=== PATIENT | male | born 1975 | race Caucasian/White ===

== ENCOUNTER 2020-12-10 21:36 | Emergency (ER) | payer OTHER ==
[~2020-12-10] VITALS: Ht 180 cm; Wt 141.0 kg
[2020-12-11] MEDS ORDERED: fentaNYL INJ 100 MCG/2 ML AMP IVP ONE (01:15)
[2020-12-11 01:33] LABS: BASOPHILS % (AUTO) 0 % (0-10); EOSINOPHILS # (AUTO) 0.1 10^3/uL (0.0-0.3); EOSINOPHILS % (AUTO) 1 % (0-10); HEMATOCRIT 44 % (40-54); HEMOGLOBIN 14.1 g/dL (13.3-17.7); LYMPHOCYTES # (AUTO) 1.7 10^3/uL (1.0-4.0); LYMPHOCYTES % (AUTO) 15 % (12-44); MEAN CORPUSCULAR HEMOGLOBIN 28 pg (25-34); MEAN CORPUSCULAR HGB CONC 32 g/dL (32-36); MEAN CORPUSCULAR VOLUME 85 fL (80-99); MEAN PLATELET VOLUME 10.4 fL (9.0-12.2); MONOCYTES # (AUTO) 0.7 10^3/uL (0.0-1.0); MONOCYTES % (AUTO) 7 % (0-12); NEUTROPHILS # (AUTO) 8.7 10^3/uL (1.8-7.8); NEUTROPHILS % (AUTO) 78 % (42-75); PLATELET COUNT 235 10^3/uL (130-400); WHITE BLOOD COUNT 11.2 10^3/uL (4.3-11.0)
[2020-12-11 01:48] LABS: ALBUMIN 4.3 GM/DL (3.2-4.5); POTASSIUM 3.8 MMOL/L (3.6-5.0)
[2020-12-11 01:49] LABS: CALCIUM 9.3 MG/DL (8.5-10.1)
[2020-12-11 01:51] LABS: TOTAL PROTEIN 7.7 GM/DL (6.4-8.2)
[2020-12-11 01:52] LABS: BILIRUBIN,TOTAL 0.5 MG/DL (0.1-1.0)
[2020-12-11 01:54] LABS: CREATININE SERUM 0.95 MG/DL (0.60-1.30)
[2020-12-11 01:57] LABS: MAGNESIUM 2.2 MG/DL (1.6-2.4)
[2020-12-11] MEDS ORDERED: oxyCODONE/APAP 5/325MG (PERCOCET 5) TABLET PO ONE (02:30)
[2020-12-11] MEDS ORDERED: ONDANSETRON 4 MG/2 ML (SDV) Z0FRAN ONE (02:36)
[2020-12-11] MEDS ORDERED: LACTATED RINGERS 1,000 ML IV ONE (02:45)
[2020-12-11] MEDS ORDERED: ONDANSETRON 4 MG/2 ML (SDV) Z0FRAN IVP ONE (02:45)
[2020-12-11] MEDS ORDERED: OXYC1TAB87 PO (03:17)
--- NOTE | 2020-12-11 03:18 | ED General ---
General Chief Complaint: General Problems/Pain Stated Complaint: LOW OX LVLS 74,LOW HR WHEN SLEEP,HEADACHE Nursing Triage Note: Pt here with MONTERO and concerns because he noted his sp02 drops while sleeping. He had a monitor because he had covid in October. He is trying to get a sleep study scheduled. He is not currently sob. Source of Information: Patient, Family History of Present Illness Date Seen by Provider: Dec 10, 2020 Time Seen by Provider: 21:57 Initial Comments This 45-year-old gentleman presents to the emergency room with complaints of right-sided headache, elevated blood pressure, chest tightness, dyspnea, nausea, and an episode of decreased oxygen saturation last night while he was dozing off in a recliner. He notes HR of 49 and O2 sat of 74% with a finger pulse-ox. He had COVID-November 05 with some lingering symptoms since then. He was vaccinated but had a breakthrough infection. His symptoms were not severe during the illness. He has no history of cardiopulmonary problems. He also has shingles primarily on the right upper extremity and torso. He has been seen by Dr. Thompson in the clinic and at the [facility] walk-in clinic. He was prescribed acyclovir for the shingles, antibiotics for sinus infection, and Zofran for the nausea. Allergies and Home Medications Allergies Coded Allergies: No Known Drug Allergies (Unverified , 10/30/12) Home Medications Oxycodone HCl/Acetaminophen 1 Each Tablet, 1 TAB PO Q4H PRN for PAIN- BREAKTHROUGH Prescribed by: BENJI BARAJAS on 12/11/20 0318 Patient Home Medication List Home Medication List Reviewed: Yes Review of Systems Review of Systems Constitutional: see HPI, other (Fatigue) EENTM: see HPI Respiratory: see HPI Cardiovascular: see HPI Gastrointestinal: no symptoms reported Genitourinary: no symptoms reported Musculoskeletal: see HPI Skin: see HPI Psychiatric/Neurological: See HPI Hematologic/Lymphatic: No Symptoms Reported Immunological/Allergic: no symptoms reported Past Umohxsi-Ccmokp-Tcrmkc Hx Patient Social History Tobacco Use?: No Smoking Status: Never a Smoker Smokeless Tobacco Frequency: Never a User Use of E-Cig and/or Vaping dev: No Substance use?: No Alcohol Use?: Yes Alcohol Frequency: Rarely Pt feels they are or have been: No Seasonal Allergies Seasonal Allergies: Yes Past Medical History Surgeries: No Respiratory: Yes (COVID October 2020) Cardiac: No Neurological: No Reproductive Disorders: No Sexually Transmitted Disease: No HIV/AIDS: No Gastrointestinal: No Musculoskeletal: No Endocrine: No HEENT: No Cancer: No Psychosocial: No Integumentary: No Adverse Reaction/Blood Tranf: No Physical Exam Vital Signs Vital Signs - First Documented 12/10/20 21:58 Temp 37.2 Pulse 72 Resp 18 B/P (MAP) 170/96 (120) Pulse Ox 95 O2 Delivery Room Air Capillary Refill : Less Than 3 Seconds Height, Weight, BMI Height: 5'11.00" Weight: 275lbs. oz. 124.035571sw; 43.00 BMI Method: General Appearance: WD/WN, Obese, Other (Appears midly uncomfortable) HEENT: PERRL/EOMI, Normal ENT Inspection Neck: Normal Inspection Respiratory: Lungs Clear, Normal Breath Sounds, No Accessory Muscle Use Cardiovascular: Regular Rate, Rhythm, No Edema, No Murmur Gastrointestinal: Normal Bowel Sounds, Non Tender, Soft Extremity: Normal Inspection, Non Tender, No Calf Tenderness, No Pedal Edema Neurologic/Psychiatric: Alert, Oriented x3, No Motor/Sensory Deficits, Normal Mood/Affect, rental agent II-XII Norm as Tested Skin: Normal Color, Warm/Dry, Rash (Patches of shingles on the RUE and torso) Progress/Results/Core Measures Suspected Sepsis SIRS Temperature: Pulse: 72 Respiratory Rate: 18 Laboratory Tests 12/11/20 01:20: White Blood Count 11.2H Blood Pressure 170 /96 Mean: 98 Laboratory Tests 12/11/20 01:20: Creatinine 0.95, Platelet Count 235, Total Bilirubin 0.5 Results/Orders Lab Results Laboratory Tests Test 12/10/20 23:21 12/11/20 01:20 Range/Units Influenza Type A (RT-PCR) Not Detected Not Detecte Influenza Type B (RT-PCR) Not Detected Not Detecte SARS-CoV-2 RNA (RT-PCR) Not Detected Not Detecte White Blood Count 11.2 H 4.3-11.0 10^3/uL Red Blood Count 5.13 4.30-5.52 10^6/uL Hemoglobin 14.1 13.3-17.7 g/dL Hematocrit 44 40-54 % Mean Corpuscular Volume 85 80-99 fL Mean Corpuscular Hemoglobin 28 25-34 pg Mean Corpuscular Hemoglobin Concent 32 32-36 g/dL Red Cell Distribution Width 13.1 10.0-14.5 % Platelet Count 235 130-400 10^3/uL Mean Platelet Volume 10.4 9.0-12.2 fL Immature Granulocyte % (Auto) 0 % Neutrophils (%) (Auto) 78 H 42-75 % Lymphocytes (%) (Auto) 15 12-44 % Monocytes (%) (Auto) 7 0-12 % Eosinophils (%) (Auto) 1 0-10 % Basophils (%) (Auto) 0 0-10 % Neutrophils # (Auto) 8.7 H 1.8-7.8 10^3/uL Lymphocytes # (Auto) 1.7 1.0-4.0 10^3/uL Monocytes # (Auto) 0.7 0.0-1.0 10^3/uL Eosinophils # (Auto) 0.1 0.0-0.3 10^3/uL Basophils # (Auto) 0.0 0.0-0.1 10^3/uL Immature Granulocyte # (Auto) 0.0 0.0-0.1 10^3/uL D-Dimer 0.45 0.00-0.49 UG/ML Sodium Level 136 135-145 MMOL/L Potassium Level 3.8 3.6-5.0 MMOL/L Chloride Level 102 98-107 MMOL/L Carbon Dioxide Level 23 21-32 MMOL/L Anion Gap 11 5-14 MMOL/L Blood Urea Nitrogen 11 7-18 MG/DL Creatinine 0.95 0.60-1.30 MG/DL Estimat Glomerular Filtration Rate 87 BUN/Creatinine Ratio 12 Glucose Level 111 H 70-105 MG/DL Calcium Level 9.3 8.5-10.1 MG/DL Corrected Calcium 9.1 8.5-10.1 MG/DL Magnesium Level 2.2 1.6-2.4 MG/DL Total Bilirubin 0.5 0.1-1.0 MG/DL Aspartate Amino Transf (AST/SGOT) 27 5-34 U/L Alanine Aminotransferase (ALT/SGPT) 48 0-55 U/L Alkaline Phosphatase 52 40-136 U/L Troponin I < 0.028 <0.028 NG/ML C-Reactive Protein High Sensitivity 0.91 H 0.00-0.50 MG/DL B-Type Natriuretic Peptide 15.0 <100.0 PG/ML Total Protein 7.7 6.4-8.2 GM/DL Albumin 4.3 3.2-4.5 GM/DL My Orders Orders - BENJI CLEMONS MD Covid 19 Inhouse Test (12/10/20 21:57) Influenza A And B By Pcr (12/10/20 21:57) Fentanyl Inj (Sublimaze Injection) (12/11/20 01:15) BNP (12/11/20 01:05) Cbc With Automated Diff (12/11/20 01:05) Comprehensive Metabolic Panel (12/11/20 01:05) Hs C Reactive Protein (12/11/20 01:05) Fibrin Degradation Products (12/11/20 01:05) Magnesium (12/11/20 01:05) Ed Iv/Invasive Line Start (12/11/20 01:05) Ekg Tracing (12/11/20 01:05) Chest Pa/Lat (2 View) (12/11/20 01:05) Troponin I (12/11/20 02:05) Oxycodone/Apap 5/325mg Tablet (Percocet (12/11/20 02:30) Ondansetron Injection (Zofran Injectio (12/11/20 02:45) Lactated Ringers (Lr 1000 Ml Iv Solution (12/11/20 02:45) Ondansetron Injection (Zofran Injectio (12/11/20 02:36) Medications Given in ED Vital Signs/I&O 12/10/20 12/10/20 12/11/20 21:58 23:29 03:48 Temp 37.2 36.0 36.0 Pulse 72 72 72 Resp 18 18 18 B/P (MAP) 170/96 (120) 136/79 (98) 156/90 (98) Pulse Ox 95 98 95 O2 Delivery Room Air Room Air Room Air Capillary Refill : Less Than 3 Seconds Blood Pressure Mean: 98 Progress Note : Progress Note Work-up was unremarkable. Patient was about to be discharged when he suddenly began vomiting. He was then treated with Zofran and a liter of IV fluid. Percocet was administered for his shingles pain. Presumably, his right-sided headache was caused by shingles that had not yet manifested with rash. ECG Initial ECG Impression Date: Dec 11, 2020 Initial ECG Impression Time: 01:17 Initial ECG Rate: 69 Initial ECG Rhythm: Normal Sinus Initial ECG Intervals: Normal Initial ECG Impression: Normal Comment Normal sinus rhythm with no ST elevation or depression. No abnormal intervals or axis deviation. Diagnostic Imaging Diagonstic Imaging: Xray Plain Films/CT/US/NM/MRI: chest Comments 2 view chest x-ray viewed by me. Report not yet available. No acute abnormality appreciated. Departure Impression Primary Impression: Chest heaviness Additional Impressions: Shortness of breath Nausea & vomiting Qualified Codes: R11.2 - Nausea with vomiting, unspecified Shingles Qualified Codes: B02.9 - Zoster without complications Headache Qualified Codes: R51.9 - Headache, unspecified [id number] condition Disposition: 01 HOME, SELF-CARE Condition: Improved Departure-Patient Inst. Decision time for Depature: 03:13 Referrals: GANESH THOMPSON MD (PCP/Family) Primary Care Physician Patient Instructions: Shingles Add. Discharge Instructions: Use ibuprofen up to 600 mg every 6 hours as needed for primary pain control. Add Percocet as prescribed for breakthrough pain. Complete acyclovir as previously prescribed for your shingles. Use the Zofran (ondansetron) as prescribed for nausea and vomiting. Start with a clear liquid diet. Gradually advance her diet with small quantities of bland food as tolerated. Follow through with your plans to have a sleep study. Also work toward weight loss to help reduce effects of sleep apnea. Call with questions or concerns. Return to the ER if you have worsening symptoms. All discharge instructions reviewed with patient and/or family. Voiced understanding. Scripts Oxycodone HCl/Acetaminophen (Percocet 5-325 mg Tablet) 1 Each Tablet 1 TAB PO Q4H PRN for PAIN-BREAKTHROUGH MDD 6 TABS, #10 TAB Prov: BENJI CLEMONS MD 12/11/20 Copy Copies To 1: GANESH THOMPSON MD, JOSHUA T MD Dec 11, 2020 03:18
[2020-12-11 03:48] VITALS: BP 156/90
--- NOTE | 2020-12-11 07:01 | Diagnostic Imaging Report ---
INDICATION: Chest tightness and COVID infection. PA and lateral views of the chest are obtained. FINDINGS: Heart size and pulmonary vascularity are within normal limits, and the lungs are clear, bilaterally. IMPRESSION: Unremarkable chest. Dictated by: Dictated on workstation # [id number]
== END 2020-12-11 03:48 | disposition home or self-care (01) ==
LOC: EDUNIT# 21:36 → ER 21:39
DX: R07.89 Other chest pain (principal); R06.02 Shortness of breath; R11.2 Nausea with vomiting, unspecified; B02.9 Zoster without complications; R51.9 Headache, unspecified; Z86.16 Personal history of COVID-19; E66.9 Obesity, unspecified; Z68.41 Body mass index [BMI] 40.0-44.9, adult; Z20.822 Contact with and (suspected) exposure to COVID-19
CPT/HCPCS: 36415; 71046; 80053; 83735; 83880; 84484; 85025; 85379; 86141; 87636; 93005